=== PATIENT | female | born 2000 | race Caucasian/White ===

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

== ENCOUNTER 2021-12-19 19:00 | Emergency (ER) | payer SELFPAY ==
[~2021-12-19] VITALS: Ht 147.3 cm; Wt 65.0 kg
[2021-12-19 19:19] VITALS: BP 102/67
[2021-12-19] MEDS ORDERED: IBUPROFEN 600MG TABLET PO STA (19:39)
[2021-12-19] MEDS ORDERED: IBUP-2028 MT (20:58)
== END 2021-12-19 21:14 | disposition home or self-care (01) ==
LOC: ER 19:00
DX: R07.89 Other chest pain (principal); Z20.822 Contact with and (suspected) exposure to COVID-19; R05.9 Cough, unspecified; J02.9 Acute pharyngitis, unspecified
CPT/HCPCS: 71045; 93005; 99283